=== PATIENT | female | born 1960 | race Caucasian/White ===

== ENCOUNTER 2025-08-09 08:04 | Day surgery (SDC) | payer MEDICARE ==
[2025-08-09] VITALS (7 sets, daily range): BP systolic 84–137; BP diastolic 59–84; PULSE 65–85; RESP 12–16; TEMP 96.8; O2SAT 98–100
[~2025-08-09] VITALS: Ht 162.6 cm; Wt 58.3 kg
[~2025-08-09 08:04] MED LIST: NO HOME MEDS; ringers solution, lacted 1,000 ML IV SCH
--- NOTE | 2025-08-09 09:11 | ELECTROCARDIOGRAPH REPORT ---
[facility] Test Date: 2025-08-09 Test Time: 09:08:53 Pat Name: ROCIO DODSON Department: [facility] Patient ID: [facility]-[id number] Room: Gender: F [employer] Deckhand: JURGEN : 1960 Requested By: NELSON GAO Order Number: [id number] Reading MD: Dr. BALWINDER Solares Measurements Intervals [place] Rate: 75 P: 62 WV: 136 QRS: 66 QRSD: 97 T: 64 QT: 412 QTc: 461 Interpretive Statements Sinus rhythm Electronically Signed On 08-11-2025 19:11:[address] BALWINDER Solares Please click the below link to view image of tracing.
[2025-08-09] MEDS ORDERED: simethicone 40mg/0.6ml oral drops 15ml PO ONE (09:40)
[2025-08-09] MEDS ORDERED: propofol inj 20 ML IV ONE ×2 (11:42)
== END 2025-08-09 13:01 | disposition home or self-care (01) ==
LOC: GI LAB 08:04
PROVIDERS: ATTEND Internal Medicine Gastroenterology
DX: Z09 Encounter for follow-up examination after completed treatment for conditions other than malignant neoplasm (principal); K62.4 Stenosis of anus and rectum; N18.30 Chronic kidney disease, stage 3 unspecified; Z85.038 Personal history of other malignant neoplasm of large intestine; Z90.49 Acquired absence of other specified parts of digestive tract; Z90.5 Acquired absence of kidney; Z98.891 History of uterine scar from previous surgery; Z98.890 Other specified postprocedural states; Z88.5 Allergy status to narcotic agent
CPT/HCPCS: 45378; 93005; A4620; J2704; J7030; J7120; Z7512; Z7610